=== PATIENT | female | born 1960 | race African-American/Black ===

== ENCOUNTER 2021-07-02 14:02 | Emergency (ER) | payer OTHER ==
[~2021-07-02] VITALS: Ht 167.6 cm; Wt 75.0 kg
[2021-07-02] MEDS ORDERED: FLUT9.9S NS (20:23)
[2021-07-02] MEDS ORDERED: AMOX500C PO (20:23)
--- NOTE | 2021-07-02 20:24 | PHYS DOC ---
Past Medical History Past Surgical History: No Surgical History General Adult EDM: Chief Complaint: Congestion HPI: HPI: Patient is a 61 year old female who presents with 1 week of sinus congestion and facial pain. She states been taking Sudafed the last couple days and Tylenol. She states she has been using allergy eyedrops in her eyes as they were runny. She states her nose is also very runny. She denies fever, chest pain, shortness of breath, wheezing, abdominal pain, nausea, vomiting, diarrhea, ear pain, throat pain. Patient states that she has high cholesterol. She did have a negative Covid test last . She states that 06 January she took a another Covid test today. She states she has not heard back on that. Review of Systems: Review of Systems: Constitutional: Denies fever or chills. [] Eyes: Denies change in visual acuity. + Watery eyes [] HENT: + nasal congestion or denies sore throat. + Sinus pressure [] Respiratory: Denies cough or shortness of breath. [] Cardiovascular: Denies chest pain or edema. [] GI: Denies abdominal pain, nausea, vomiting, bloody stools or diarrhea. [] : Denies dysuria. [] Musculoskeletal: Denies back pain or joint pain. [] Integument: Denies rash. [] Neurologic: Denies headache, focal weakness or sensory changes. [] Endocrine: Denies polyuria or polydipsia. [] Lymphatic: Denies swollen glands. [] Psychiatric: Denies depression or anxiety. [] Heart Score: C/O Chest Pain: No Risk Factors: Risk Factors: DM, Current or recent (<one month) smoker, HTN, HLP, family history of CAD, obesity. Risk Scores: Score 0 - 3: 2.5% MACE over next 6 weeks - Discharge Home Score 4 - 6: 20.3% MACE over next 6 weeks - Admit for Clinical Observation Score 7 - 10: 72.7% MACE over next 6 weeks - Early Invasive Strategies Physical Exam: PE: Constitutional: Well developed, well nourished, no acute distress, non-toxic appearance. [] HENT: Normocephalic, atraumatic, bilateral external ears normal, oropharynx moist, no oral exudates, nose normal. Nasal congestion. Maxillary sinus tenderness. [] Eyes: PERRLA, EOMI, conjunctiva normal, no discharge. [] Neck: Normal range of motion, no tenderness, supple, no stridor. [] Cardiovascular:Heart rate regular rhythm, no murmur [] Lungs & Thorax: Bilateral breath sounds clear to auscultation [] Abdomen: Bowel sounds normal, soft, no tenderness, no masses, no pulsatile masses. [] Skin: Warm, dry, no erythema, no rash. [] Back: No tenderness, no CVA tenderness. [] Extremities: No tenderness, no cyanosis, no clubbing, ROM intact, no edema. [] Neurologic: Alert and oriented X 3, normal motor function, normal sensory function, no focal deficits noted. [] Psychologic: Affect normal, judgement normal, mood normal. [] Current Patient Data: Vital Signs: Vital Signs Date Time Temp Pulse Resp B/P (MAP) Pulse Ox O2 Delivery O2 Flow Rate FiO2 07/02/21 19:31 88 129/91 98 Room Air EKG: EKG: [] Radiology/Procedures: Radiology/Procedures: [] Course & Med Decision Making: Course & Med Decision Making Pertinent Labs and Imaging studies reviewed. (See chart for details) See HPI. Alert and oriented x4. Ambulatory steady gait. Speaks in full clear sentences. Bilateral tympanic's are white. Throat is pink without exudates. Lungs are clear to all station all lobes. Skin pink warm and dry. Cap refill less than 2 seconds. No redness, swelling or drainage from her eyes. [] Dragon Disclaimer: Dragon Disclaimer: This electronic medical record was generated, in whole or in part, using a voice recognition dictation system. Departure Departure Impression: Primary Impression: Sinusitis Qualified Codes: J01.00 - Acute maxillary sinusitis, unspecified Disposition: HOME / SELF CARE / HOMELESS Condition: STABLE Referrals: UNKNOWN PCP NAME (PCP) Patient Instructions: Sinusitis Additional Instructions: Follow-up with primary care physician. Quarantine until you get your Covid results. You can use Flonase nasal spray also. Try allergy medication to help dry up some of your sinuses. Drink plenty of fluids. Take Tylenol or ibuprofen for your pain. Scripts Fluticasone Propionate (Flonase Allergy Relief) 9.9 Ml [place].susp 2 SPRAYS NS DAILY, #1 ML Prov: BAFYUMIKO CHRISTENSEN APRN 07/02/21 Amoxicillin (AMOXICILLIN) 500 Mg Capsule 1 CAP PO BID, #20 CAP Prov: YUMIKO RIVERA APRN 07/02/21 YUMIKO RIVERA APRN Jul 02, 2021 20:24
[2021-07-02] MEDS ORDERED: DEXAMETHASONE 4 MG TABLET PO ONE (20:30)
[2021-07-02 20:33] VITALS: BP 119/71
== END 2021-07-02 20:45 | disposition home or self-care (01) ==
LOC: ER 14:02
DX: J01.00 Acute maxillary sinusitis, unspecified (principal)
CPT/HCPCS: 99283